=== PATIENT | male | born 1975 | race Two or more races ===

== ENCOUNTER → 2022-01-27 | Emergency (ER) | payer SELFPAY ==
[~2022-01-27] VITALS: Ht 177.8 cm; Wt 75.0 kg
[2022-01-27 02:51] LABS: Basophils # (auto) 0 10 ^3/uL (0-0.2); Basophils % (auto) 0.2 % (0.0-2.0); Eosinophils # (auto) 0.1 10 ^3/uL (0-0.8); Eosinophils % (auto) 0.8 % (0.0-7.0); Hematocrit 43.2 % (41.0-53.0); Hemoglobin 14.7 g/dL (13.5-17.5); Lymphocytes # (auto) 2.9 10 ^3/uL (0.4-5.4); Lymphocytes % (auto) 20.3 % (10.0-50.0); Mean Corpuscular Hemoglobin 32.1 pg (28.0-32.0); Mean Corpuscular Volume 94.6 fL (80.0-100.0); Monocytes # (auto) 0.9 10 ^3/uL (0-1.3); Monocytes % (auto) 6.1 % (0.0-12.0); Neutrophils # (auto) 10.3 10 ^3/uL (1.6-8.6); Neutrophils % (auto) 72.6 % (37.0-80.0); Nucleated Red Blood Cells % 0.1 %; Red Blood Cells 4.57 10^6/uL (4.5-5.90); Red Cell Distribution Width 13.3 % (11.8-14.3); White Blood Cell 14.1 10^3/uL (4.4-10.8)
[2022-01-27 03:06] LABS: Albumin 3.2 g/dL (3.4-5.0); BUN/Creatinine Ratio 14.3; Potassium 4.2 mmol/L (3.5-5.1)
[2022-01-27 03:08] LABS: Bilirubin, Total 0.2 mg/dL (0.2-1.0); Total Protein 5.8 g/dL (6.4-8.2)
[2022-01-27 04:18] VITALS: BP 118/8
== END | disposition home or self-care (01) ==
LOC: ER 01:10
DX: R56.9 Unspecified convulsions (principal); M54.9 Dorsalgia, unspecified
CPT/HCPCS: 36415; 70450; 71045; 72100; 80053; 80320; 82140; 85025; 86850; 86900; 86901; 93005